=== PATIENT | male | born 1980 | race Caucasian/White ===

== ENCOUNTER 2021-10-01 13:49 | Emergency (ER) | payer MEDICAID ==
[~2021-10-01] VITALS: Ht 175.3 cm; Wt 107.0 kg
[2021-10-01] MEDS ORDERED: TETANUS, DIPHTHERIA, PERTUSSIS VAC/PF 0.5ML (>10YR OLD) IM ONE (14:15)
[2021-10-01] MEDS ORDERED: BACITRACIN ZINC OINT UDPKT TOP ONE (14:15)
[2021-10-01] MEDS ORDERED: LIDOCAINE HCL/EPINEPHRINE 1%-EPI 1:100,000 20 ML VIAL INFIL ONE (14:15)
[2021-10-01 15:55] VITALS: BP 128/87
== END 2021-10-01 15:57 | disposition home or self-care (01) ==
LOC: ER 13:49
DX: S51.812A Laceration without foreign body of left forearm, initial encounter (principal); Z98.890 Other specified postprocedural states; X58.XXXA Exposure to other specified factors, initial encounter; Y93.89 Activity, other specified; Y92.89 Other specified places as the place of occurrence of the external cause; Y99.8 Other external cause status
CPT/HCPCS: 12002; 73060; 73090; 90471; 90715; 99284; A4217; J3490; Z7610